=== PATIENT | male | born 1975 | race African-American/Black ===

== ENCOUNTER 2017-05-01 23:14 | Emergency (ER) | payer OTHER ==
[~2017-05-01] VITALS: Ht 160 cm; Wt 83.9 kg
[~2017-05-01 23:14] MED LIST: IBUPROFEN600 MG ORAL
[2017-05-01] MEDS ORDERED: LORazepam Inj 2mg/ml 1ml IV ONE (23:45)
[2017-05-01] MEDS ORDERED: Aspirin Baby 81mg ORAL ONE (23:45)
--- NOTE | 2017-05-01 23:49 | Emergency Room Report ---
History of Present Illness General Chief Complaint: Chest Pain Source: Patient Present Illness HPI Is a 42-year-old male with no past medical history. He said his been under a lot of stress lately. Last 2 months he been feeling anxious and having palpitation. Also with some chest pressure. Symptom worsen the last 2 days. No nausea vomiting. No fever or chills. Denies any radiation. No diaphoresis. He was to be checked out is make sure everything is okay. Allergies: Coded Allergies: No Known Allergies (Unverified , 07/07/16) Patient History Past Medical History: none, see triage record, old chart reviewed Past Surgical History: none Pertinent Family History: none Social History: Denies: smoking Immunizations: other Reviewed Nursing Documentation: PMH: Agreed, PSxH: Agreed Nursing Documentation-PMH Past Medical History: No Stated History Review of Systems Eye: Denies: eye pain, blurred vision ENT: Denies: ear pain, nose congestion, throat swelling Respiratory: Denies: cough, shortness of breath Cardiovascular: Reports: chest pain, palpitations Gastrointestinal: Denies: abdominal pain, diarrhea, nausea, vomiting Musculoskeletal: Denies: back pain, joint pain Skin: Denies: rash Neurological: Denies: headache, numbness Endocrine: Denies: increased thirst, increased urine Hematologic/Lymphatic: Denies: easy bruising All Other Systems: negative except mentioned in HPI Physical Exam Vital Signs Date Time Temp Pulse Resp B/P (MAP) Pulse Ox O2 Delivery O2 Flow Rate FiO2 05/01/17 23:15 97.9 65 16 139/96 100 Room Air vitals normal Sp02 EP Interpretation: reviewed, normal General Appearance: well appearing, no apparent distress, alert Head: normocephalic, atraumatic Eyes: bilateral eye PERRL, bilateral eye EOMI ENT: hearing grossly normal, normal pharynx Neck: full range of motion, supple, no meningismus Respiratory: chest non-tender, lungs clear, normal breath sounds Cardiovascular #1: regular rate, rhythm, no murmur Gastrointestinal: normal bowel sounds, non tender, no mass, no organomegaly, no bruit, non-distended Musculoskeletal: back normal, gait/station normal, normal range of motion Psychiatric: mood/affect normal Skin: warm/dry Medical Decision Making Diagnostic Impression: Primary Impression: Chest pain Qualified Codes: R07.9 - Chest pain, unspecified ER Course Patient presents with atypical chest pain. No evidence of ACS, PE, dissection to name a few. May be stress/anxiety related. We'll discharge home. He will need further workup with cardiology as an outpatient. EKG Diagnostic Results Rate: normal Rhythm: NSR ST Segments: no acute changes ASA given to the pt in ED: Yes Rhythm Strip Diag. Results Rhythm Strip Time: 23:49 EP Interpretation: yes Rate: 80 Rhythm: NSR, no PVC's, no ectopy Chest X-Ray Diagnostic Results Chest X-Ray Diagnostic Results : Chest X-Ray Ordered: Yes # of Views/Limited/Complete: 1 View Indication: Chest Pain EP Interpretation: Yes Interpretation: no consolidation, no effusion, no pneumothorax, no acute cardiopulmonary disease Impression: No acute disease Electronically Signed by: Electronically signed by Ruperto Guaman MD Last Vital Signs Date Time Temp Pulse Resp B/P (MAP) Pulse Ox O2 Delivery O2 Flow Rate FiO2 05/01/17 23:22 65 16 Room Air 05/01/17 23:15 97.9 139/96 100 Status: improved Disposition: HOME, SELF-CARE Condition: Stable Scripts Lorazepam* (ATIVAN*) 0.5 Mg Tablet 0.5 MG ORAL THREE TIMES A DAY, #21 TAB Prov: RUPERTO GUAMAN M.D. 05/02/17 Referrals: NON PHYSICIAN (PCP) Patient Instructions: Nonspecific Chest Pain Additional Instructions: Followup with your Dr. in 2-3 days. You may benefit from a referral to see a director park. Return if symptom worsen. RUPERTO GUAMAN M.D. May 01, 2017 23:49
[2017-05-01 23:56] LABS: EOSINOPHILS % (AUTO) 5.8 % (0.0-3.0); LYMPHOCYTES % (AUTO) 35.4 % (20.0-45.0); MEAN CORPUSCULAR HEMOGLOBIN 30.9 PG (27.0-31.0); MEAN CORPUSCULAR HGB CONC 34.7 G/DL (32.0-36.0); MEAN CORPUSCULAR VOLUME 89 FL (80-99); MEAN PLATELET VOLUME 7.1 FL (6.5-10.1); MONOCYTES % (AUTO) 6.6 % (1.0-10.0); NEUTROPHILS % (AUTO) 51.2 % (45.0-75.0); PLATELET COUNT 266 K/UL (150-450); RED BLOOD COUNT 4.77 M/UL (4.70-6.10); WHITE BLOOD COUNT 6.6 K/UL (4.8-10.8)
[2017-05-02 00:06] LABS: APPEARANCE,URINE CLEAR; KETONES,URINE NEGATIVE (NEGATIVE); LEUKOCYTE ESTERASE ,URINE 1+ (NEGATIVE); NITRITE,URINE NEGATIVE (NEGATIVE); PH,URINE 7 (4.5-8.0); PROTEIN,URINE NEGATIVE (NEGATIVE); UROBILINOGEN,URINE 1 MG/DL (0.0-1.0)
[2017-05-02 00:16] LABS: ALANINE AMINOTRANSFERASE 24 U/L (12-78); ALBUMIN/GLOBULIN RATIO 0.8 (1.0-2.7); ANION GAP 7 (5-15); ASPARTATE AMINO TRANSFERASE 14 U/L (15-37); CALCIUM 10.2 MG/DL (8.5-10.1); CARBON DIOXIDE 27 MMOL/L (21-32); CHLORIDE 106 MMOL/L (98-107); CKMB 0.6 NG/ML (0.0-3.6); CREATININE 1.2 MG/DL (0.55-1.30); GLOMERULAR FILTRATION RATE > 60 mL/min (>60); POTASSIUM 3.7 MMOL/L (3.5-5.1); SODIUM 140 MMOL/L (136-145); TOTAL PROTEIN 8.1 G/DL (6.4-8.2)
[2017-05-02 00:24] VITALS: BP 132/93
[2017-05-02] MEDS ORDERED: ATIVAN0.5 MG ORAL (00:29)
[2017-05-02 00:32] LABS: BACTERIA,URINE FEW /HPF; RBC,URINE 0-2 /HPF (0 - 0); SQUAMOUS EPITHELIAL CELL,UR FEW /LPF (NONE/OCC); WBC,URINE 0-2 /HPF (0 - 0)
[2017-05-02 00:35] VITALS: BP 132/93
--- NOTE | 2017-05-02 08:54 | Diagnostic Imaging Report ---
Indication: Chest pain Comparison: 02/13/2010 Findings: Single view of the chest shows a normal cardiomediastinal silhouette. Pulmonary vasculature is normal. Lung are clear. Soft tissues and osseous structures are within normal limits. Impression: Normal chest
--- NOTE | 2017-05-11 08:26 | Cardiology Report ---
APPROVED REPORT EKG Measurement Heart [id number] Normal sinus rhythm Normal ECG
== END 2017-05-02 00:36 | disposition home or self-care (01) ==
LOC: EMR 23:46
DX: R07.89 Other chest pain (principal); R00.2 Palpitations
CPT/HCPCS: 36415; 71010; 80053; 80300; 81003; 82550; 82553; 84484; 85025; 93005; 99283

== ENCOUNTER 2017-08-19 21:51 | Emergency (ER) | payer OTHER ==
[~2017-08-19] VITALS: Ht 162.6 cm; Wt 74.8 kg
[~2017-08-19 21:51] MED LIST changes: +ATIVAN0.5 MG ORAL
[2017-08-19] MEDS ORDERED: NKM (22:01)
[2017-08-19 22:05] VITALS: BP 145/90
[2017-08-19] MEDS ORDERED: guaiFENesin 100mg/5ml Liq ud ORAL ONE (22:45)
[2017-08-19] MEDS ORDERED: NAPROXEN250 M1 PO (22:46)
[2017-08-19] MEDS ORDERED: ADULT WAL-100 MG/5 M ORAL (22:46)
[2017-08-19] MEDS ORDERED: guaiFENesin 100mg/5ml Liq ud ONE (22:52)
[2017-08-19 23:02] VITALS: BP 145/90
--- NOTE | 2017-08-20 04:34 | Emergency Room Report ---
History of Present Illness General Chief Complaint: Upper Respiratory Illness Source: Patient Present Illness HPI Patient is a 42-year-old male presented after increased cough. Patient gradual onset of symptoms. Patient been having cough for greater than a week. He denied any productive cough. He had intermittent paroxysms. He denied any fever. He had been urinating. He denied any chest discomfort. He reported having intermittent headache. Allergies: Coded Allergies: No Known Allergies (Unverified , 07/07/16) Patient History Past Medical History: see triage record Reviewed Nursing Documentation: PMH: Agreed, PSxH: Agreed Nursing Documentation-PMH Past Medical History: No Stated History Review of Systems All Other Systems: negative except mentioned in HPI Physical Exam Vital Signs Date Time Temp Pulse Resp B/P (MAP) Pulse Ox O2 Delivery O2 Flow Rate FiO2 08/19/17 21:58 98.2 72 14 145/90 97 Room Air Sp02 EP Interpretation: reviewed, normal General Appearance: normal inspection, well appearing, no apparent distress, alert, GCS 15 Head: atraumatic ENT: normal ENT inspection, hearing grossly normal, normal voice Neck: normal inspection, full range of motion, supple, no bony tend Respiratory: normal inspection, lungs clear, normal breath sounds, no respiratory distress, no retraction, no wheezing Cardiovascular #1: regular rate, rhythm, no edema Gastrointestinal: normal inspection, normal bowel sounds, non tender, soft, no guarding, no hernia Genitourinary: no CVA tenderness Musculoskeletal: normal inspection, back normal, normal range of motion Neurologic: normal inspection, alert, responsive, speech normal Psychiatric: normal inspection, judgement/insight normal, mood/affect normal Skin: normal inspection, normal color, no rash Medical Decision Making Diagnostic Impression: Primary Impression: Viral respiratory infection ER Course Presented for cough. Differential diagnosis included but was not limited to bronchitis, pneumonia, pulmonary embolism, pericarditis, asthma, foreign body. Patient has a benign exam and does not appear to require any further imaging or laboratory testing at this time. Patient presented for what appears to be a viral respiratory infection. He does not appear to require antiviral medications this time due to prolonged course. The patient is advised to follow up with primary care doctor in 1-2 days. Patient is advised to return if any worsening condition or if any changes in status that are concerning. This report is dictated with [employer] shot examiner software which may occasionally lead to discrepancies related to use of this software. Last Vital Signs Date Time Temp Pulse Resp B/P (MAP) Pulse Ox O2 Delivery O2 Flow Rate FiO2 08/19/17 22:05 72 14 Room Air 08/19/17 22:05 98.2 145/90 97 Status: unchanged Disposition: HOME, SELF-CARE Condition: Stable Scripts Naproxen (Naproxen) 250 Mg Tablet 250 MG PO EVERY 12 HOURS, #14 TAB Prov: Arturo Carrero 08/19/17 Guaifenesin* (ADULT WAL-TUSSIN*) 100 Mg/5 Ml Liquid 10 ML ORAL Q4H, #120 ML Prov: Arturo Carrero 08/19/17 Referrals: [facility],REFERR (PCP) Patient Instructions: Upper Respiratory Infection, Adult Arturo Carrero Aug 20, 2017 04:34
== END 2017-08-19 23:02 | disposition home or self-care (01) ==
LOC: EMR 22:48
DX: J06.9 Acute upper respiratory infection, unspecified (principal); B34.9 Viral infection, unspecified
CPT/HCPCS: 99283

== ENCOUNTER 2018-04-26 11:08 | Emergency (ER) | payer SELFPAY ==
[~2018-04-26] VITALS: Ht 160 cm; Wt 81.6 kg
[~2018-04-26 11:08] MED LIST changes: +ADULT WAL-100 MG/5 M ORAL; +NAPROXEN250 M1 PO; +NKM
[2018-04-26 11:14] VITALS: BP 118/81
--- NOTE | 2018-04-26 11:59 | Emergency Room Report ---
History of Present Illness General Chief Complaint: General Complaint Source: Patient Present Illness HPI 43-year-old male with no medical problems presents with left-sided nonradiating chest discomfort sensation since this morning with a sensation of weakness and generalized dizziness whenever he tried to stand up. He reports it feels like he was going to pass out but he never did. Denies SOB, and reports it feels somewhat like heartburn and he's had this symptom before. Allergies: Coded Allergies: No Known Allergies (Unverified , 04/26/18) Patient History Past Medical History: see triage record Reviewed Nursing Documentation: PMH: Agreed; PSxH: Agreed Nursing Documentation-PMH Past Medical History: No Stated History Review of Systems All Other Systems: negative except mentioned in HPI Physical Exam Vital Signs Date Time Temp Pulse Resp B/P (MAP) Pulse Ox O2 Delivery O2 Flow Rate FiO2 04/26/18 11:14 97.8 77 19 118/81 99 Room Air 97.8 Sp02 EP Interpretation: reviewed, normal General Appearance: no apparent distress, alert, non-toxic Head: normocephalic Eyes: bilateral eye normal inspection, bilateral eye PERRL, bilateral eye EOMI ENT: normal ENT inspection, hearing grossly normal, normal pharynx, no angioedema, normal voice, moist mucus membranes Neck: normal inspection, full range of motion, supple, supple/symm/no masses Respiratory: chest non-tender, lungs clear, normal breath sounds, chest symmetrical, palpation of chest normal Cardiovascular #1: normal peripheral pulses, regular rate, rhythm Cardiovascular #2: 2+ radial (R), 2+ radial (L) Gastrointestinal: normal inspection, non tender, soft, no mass, no guarding, no rebound Rectal: deferred Genitourinary: normal inspection, no CVA tenderness Musculoskeletal: back normal, gait/station normal, normal range of motion, non- tender, no calf tenderness, Isaak's Sign negative Neurologic: alert, responsive, land degradation analyst III-XII nml as tested, motor strength/tone normal, sensory intact, speech normal Psychiatric: judgement/insight normal, memory normal, mood/affect normal, no suicidal/homicidal ideation Skin: normal color, no rash, warm/dry, normal turgor Lymphatic: no adenopathy Medical Decision Making Diagnostic Impression: Primary Impression: Vaso vagal episode ER Course Patient with symptoms more concerning for near-syncope and chest pain, has been pain-free throughout his course here, has no risk factors for acute coronary syndrome, chest CT is negative for PE, will discharge, follow-up with PMD EKG Diagnostic Results EKG Time: 11:22 EP Interpretation: no st-t changes, no twi's Rate: normal Rhythm: NSR ST Segments: no acute changes ASA given to the pt in ED: Yes Rhythm Strip Diag. Results Rhythm Strip Time: 11:58 EP Interpretation: yes Rate: 63 Rhythm: NSR, no PVC's Chest X-Ray Diagnostic Results Chest X-Ray Diagnostic Results : Chest X-Ray Ordered: Yes # of Views/Limited/Complete: 1 View Indication: Chest Pain EP Interpretation: Yes Interpretation: no consolidation, no effusion, no pneumothorax, no acute cardiopulmonary disease Impression: No acute disease Electronically Signed by: Tripp Bryant MD CT/MRI/US Diagnostic Results CT/MRI/US Diagnostic Results : Imaging Test Ordered: cta chest Impression negative for PE or other acute dz Last Vital Signs Date Time Temp Pulse Resp B/P (MAP) Pulse Ox O2 Delivery O2 Flow Rate FiO2 04/26/18 11:14 97.8 77 19 118/81 99 Room Air 97.9 Disposition: HOME, SELF-CARE Condition: Stable TRIPP BRYANT M.D Apr 26, 2018 11:59
[2018-04-26 12:00] LABS: BASOPHILS % (AUTO) 0.7 % (0.0-2.0); EOSINOPHILS % (AUTO) 0.6 % (0.0-3.0); HEMOGLOBIN 14.1 G/DL (14.2-18.0); LYMPHOCYTES % (AUTO) 16.6 % (20.0-45.0); MEAN CORPUSCULAR VOLUME 87 FL (80-99); NEUTROPHILS % (AUTO) 77.1 % (45.0-75.0); PLATELET COUNT 241 K/UL (150-450); RED BLOOD COUNT 4.81 M/UL (4.70-6.10); RED CELL DISTRIBUTION WIDTH 11.1 % (11.6-14.8); WHITE BLOOD COUNT 6.1 K/UL (4.8-10.8)
[2018-04-26] MEDS ORDERED: Isovue-370 150ml vial INJ PRN (12:15)
[2018-04-26 12:18] LABS: ANION GAP 8 mmol/L (5-15); BLOOD UREA NITROGEN 16 mg/dL (7-18); CARBON DIOXIDE 26 MMOL/L (21-32); CHLORIDE 106 MMOL/L (98-107); POTASSIUM 3.9 MMOL/L (3.5-5.1); SODIUM 140 MMOL/L (136-145)
[2018-04-26 12:22] LABS: ALANINE AMINOTRANSFERASE 22 U/L (12-78); ALBUMIN 3.6 G/DL (3.4-5.0); ALBUMIN/GLOBULIN RATIO 0.9 (1.0-2.7); ALKALINE PHOSPHATASE 75 U/L (46-116); ASPARTATE AMINO TRANSFERASE 17 U/L (15-37); BILIRUBIN,TOTAL 0.6 MG/DL (0.2-1.0)
--- NOTE | 2018-04-26 12:41 | Diagnostic Imaging Report ---
Indication: Chest pain Comparison: 05/01/2017 A single view chest radiograph was obtained. Findings: Cardiomediastinal appearance is within normal limits for age. The lungs are clear. Pulmonary vascularity is appropriate. The diaphragmatic contour is smooth and costophrenic angles are sharp. No pleural effusions are identified. The bones are unremarkable. Impression: No acute findings
[2018-04-26 13:42] VITALS: BP 120/72
--- NOTE | 2018-04-26 13:49 | Diagnostic Imaging Report ---
Indication: Chest pain Technique: Continuous helical transaxial imaging of the chest was obtained from the thoracic inlet to the upper abdomen during rapid intravenous contrast administration. Arterial phase of enhancement obtained. Coronal 2-D reformats were also obtained and maximum intensity projection images in multiple planes. Study obtained in a Siemens sensation [address] Automatic Exposure Control was utilized. Total Dose length Product (DLP): 1169.[address] Dose Index Volume (CTDIvol): 24.4,23.1,23.1 mGy Comparison: None Findings: The pulmonary artery is well opacified and shows no filling defects. There is no adenopathy, pleural or pericardial effusions are identified. There is no aortic dissection or aneurysm identified within the chest. The lungs are clear. Visualized part of the upper abdomen is unremarkable. Impression: Negative CTA of the chest The CT scanner at [facility] is accredited by the [employer] and the scans are performed using dose optimization techniques as appropriate to a performed exam including Automatic Exposure control.
[2018-04-26] MEDS ORDERED: PEPCID AC20 M2 PO (14:24)
[2018-04-26 14:37] VITALS: BP 120/72
--- NOTE | 2018-05-01 12:25 | Cardiology Report ---
APPROVED REPORT EKG Measurement Heart [id number] AR [id number] Normal sinus rhythm Normal ECG
== END 2018-04-26 14:50 | disposition home or self-care (01) ==
LOC: EMR 11:56
DX: R55 Syncope and collapse (principal); R07.89 Other chest pain
CPT/HCPCS: 36415; 71045; 71275; 80053; 83690; 84484; 85025; 93005; 99284; Q9967

== ENCOUNTER → 2018-07-12 | Emergency (ER) | payer SELFPAY ==
[~2018-07-12] VITALS: Ht 160 cm; Wt 81.6 kg
[~2018-07-12] MED LIST changes: +AMOXICILLIN500 MG ORAL; +PEPCID AC20 M2 PO; +PROMETHAZINE-C118 M1 ORAL
[2018-07-12 11:12] VITALS: BP 121/78
[2018-07-12 11:41] VITALS: BP 128/86
--- NOTE | 2018-07-12 11:49 | Emergency Room Report ---
History of Present Illness General Chief Complaint: Flu Like Symptoms Source: Patient Present Illness HPI 43-year-old male presents ED for evaluation. Patient complaining of bodyaches, cough, chills 2 weeks. Cough is productive with greenish phlegm. Afebrile in triage. Pain is dull, 8 out of 10, nonradiating. States that he has tried multiple adat-kco-pxchjow medications without relief. Denies sick contacts or recent travel. Did not receive flu vaccine this year. No other aggravating relieving factors. Denies any other associated symptoms Allergies: Coded Allergies: No Known Allergies (Unverified , 04/26/18) Patient History Past Medical History: GERD Past Surgical History: none Pertinent Family History: none Social History: Denies: smoking, alcohol use, drug use Immunizations: UTD Reviewed Nursing Documentation: PMH: Agreed; PSxH: Agreed Nursing Documentation-PMH Past Medical History: No History, Except For Hx Gastrointestinal Problems: Yes - GERD Review of Systems All Other Systems: negative except mentioned in HPI Physical Exam Vital Signs Date Time Temp Pulse Resp B/P (MAP) Pulse Ox O2 Delivery O2 Flow Rate FiO2 07/12/18 11:04 98.2 68 16 121/78 98 Room Air Sp02 EP Interpretation: reviewed, normal General Appearance: no apparent distress, alert, GCS 15, non-toxic Head: normocephalic, atraumatic Eyes: bilateral eye normal inspection, bilateral eye PERRL ENT: hearing grossly normal, normal pharynx, no angioedema, normal voice Neck: full range of motion, supple/symm/no masses Respiratory: chest non-tender, lungs clear, normal breath sounds, speaking full sentences Cardiovascular #1: regular rate, rhythm, no edema Cardiovascular #2: 2+ carotid (R), 2+ carotid (L), 2+ radial (R), 2+ radial (L) , 2+ dorsalis pedis (R), 2+ dorsalis pedis (L) Gastrointestinal: normal bowel sounds, non tender, soft, non-distended, no guarding, no rebound Rectal: deferred Genitourinary: normal inspection, no CVA tenderness Musculoskeletal: back normal, gait/station normal, normal range of motion, non- tender Neurologic: alert, oriented x3, responsive, motor strength/tone normal, sensory intact, speech normal Psychiatric: judgement/insight normal, memory normal, mood/affect normal, no suicidal/homicidal ideation Reflexes: 3+ bicep (R), 3+ bicep (L), 3+ tricep (R), 3+ tricep (L), 3+ knee (R) , 3+ knee (L) Skin: normal color, no rash, warm/dry, well hydrated Lymphatic: no adenopathy Medical Decision Making Diagnostic Impression: Primary Impression: Atypical pneumonia Additional Impression: Influenza-like symptoms ER Course Hospital Course 43-year-old male presents ED complaining of bodyaches and cough x2 weeks Differential diagnoses include: URI, pharyngitis, otitis media, asthma Clinical course Patient placed on stretcher. After initial history, physical exam reveals a female in no acute distress. Bilateral TM unremarkable. No pharyngeal erythema. No tonsillar exudates. No lymphadenopathy. lungs clear. abdomen soft. Presentation consistent with atypical pneumonia. Given presentation, i will prescribe antibiotics Patient does not have a PMD. We'll provide referrals. Safe for discharge and close outpatient follow-up Diagnosis - atypical pneumonia Stable and discharged home with Rx amoxicillin, promethazine/codeine, motrin. Instructed to followup with PMD. Return to ED if symptoms recur or worsen Last Vital Signs Date Time Temp Pulse Resp B/P (MAP) Pulse Ox O2 Delivery O2 Flow Rate FiO2 07/12/18 11:41 98.8 88 18 128/86 98 Room Air Status: improved Disposition: HOME, SELF-CARE Condition: Stable Scripts Ibuprofen* (MOTRIN*) 600 Mg Tablet 600 MG ORAL Q8H PRN for For Pain, #30 TAB 0 Refills Prov: Phu Young MD 07/12/18 Codeine/Promethazine Hcl* (PROMETHAZINE-CODEINE SYRUP*) 118 Ml Syrup 5 ML ORAL Q6H PRN for For Cough, #118 ML 0 Refills Prov: Phu Young MD 07/12/18 Amoxicillin* (AMOXIL*) 500 Mg Capsule 500 MG ORAL THREE TIMES A DAY, #21 CAP Prov: Phu Young MD 07/12/18 Referrals: [facility] Patient Instructions: Community-Acquired Pneumonia, Adult, [id number] Phu Young MD Jul 12, 2018 11:49
== END | disposition home or self-care (01) ==
LOC: EMR 11:24
DX: J18.9 Pneumonia, unspecified organism (principal); K21.9 Gastro-esophageal reflux disease without esophagitis
CPT/HCPCS: 99283

== ENCOUNTER 2018-08-06 23:48 | Emergency (ER) | payer OTHER ==
[~2018-08-06] VITALS: Ht 160 cm; Wt 83.9 kg
--- NOTE | 2018-08-07 00:03 | NUR ---
ED Nurse Note: Patient walk in c/o lower back pain that has been getting worse for the past month. patient reports frequent urination for 1x week. Patient states he injured his back at work in 2016. AO4. NAD. VSS. Denies SOB.
[2018-08-07 00:04] VITALS: BP 128/88
--- NOTE | 2018-08-07 00:15 | NUR ---
ED Nurse Note: Urine collected; sent down to lab.
[2018-08-07] MEDS ORDERED: Ketorolac 30mg Inj IM ONE (00:30)
[2018-08-07] MEDS ORDERED: Methocarbamol 750mg tab ORAL ONE (00:30)
[2018-08-07 01:23] LABS: APPEARANCE,URINE CLEAR; BILIRUBIN, URINE NEGATIVE (NEGATIVE); COLOR,URINE YELLOW; GLUCOSE, URINE (UA) NEGATIVE (NEGATIVE); KETONES,URINE NEGATIVE (NEGATIVE); LEUKOCYTE ESTERASE ,URINE NEGATIVE (NEGATIVE); NITRITE,URINE NEGATIVE (NEGATIVE); PH,URINE 6 (4.5-8.0); PROTEIN,URINE 1+ (NEGATIVE); UROBILINOGEN,URINE 1 MG/DL (0.0-1.0)
[2018-08-07] MEDS ORDERED: LIDODERM700 M1 TOPIC (02:02)
[2018-08-07] MEDS ORDERED: ROBAXIN-750750 MG PO (02:02)
[2018-08-07] MEDS ORDERED: IBUPROFEN600 MG ORAL (02:02)
[2018-08-07 02:05] VITALS: BP 128/88
--- NOTE | 2018-08-07 02:05 | NUR ---
ED Nurse Note: Patient cleared for discharge per ERMD. AO4. NAD. VSS. Patient given prescriptions and discharge instructions; verbalized understanding. ID band removed. Patient ambulated out with all personal belongings with steady gait.
--- NOTE | 2018-08-07 04:19 | Emergency Room Report ---
History of Present Illness General Chief Complaint: Lower Back Pain or Injury Source: Patient Present Illness HPI 43-year-old male presents ED for evaluation. Patient complaining of back pain. States pain has been on and off his 2016 when he had a injury at work. States pain has been getting progressively worse for the last month. Throbbing , 8 out of 10, nonradiating. States he's been experiencing increased urinary frequency area denies incontinence. Denies dysuria. Denies nausea or vomiting. Denies any leg or motor weakness. No other aggravating relieving factors. Denies any other associated symptoms Allergies: Coded Allergies: No Known Allergies (Unverified , 04/26/18) Patient History Past Medical History: GERD Past Surgical History: none Pertinent Family History: none Social History: Denies: smoking, alcohol use, drug use Immunizations: UTD Reviewed Nursing Documentation: PMH: Agreed; PSxH: Agreed Nursing Documentation-PMH Past Medical History: No History, Except For Hx Gastrointestinal Problems: Yes - GERD, Review of Systems All Other Systems: negative except mentioned in HPI Physical Exam Vital Signs Date Time Temp Pulse Resp B/P (MAP) Pulse Ox O2 Delivery O2 Flow Rate FiO2 08/06/18 23:53 97.9 70 16 128/88 98 08/07/18 00:04 Room Air Sp02 EP Interpretation: reviewed, normal General Appearance: no apparent distress, alert, GCS 15, non-toxic Head: normocephalic, atraumatic Eyes: bilateral eye normal inspection, bilateral eye PERRL ENT: hearing grossly normal, normal pharynx, no angioedema, normal voice Neck: full range of motion, supple/symm/no masses Respiratory: chest non-tender, lungs clear, normal breath sounds, speaking full sentences Cardiovascular #1: regular rate, rhythm, no edema Cardiovascular #2: 2+ carotid (R), 2+ carotid (L), 2+ radial (R), 2+ radial (L) , 2+ dorsalis pedis (R), 2+ dorsalis pedis (L) Gastrointestinal: normal bowel sounds, non tender, soft, non-distended, no guarding, no rebound Rectal: deferred Genitourinary: normal inspection, no CVA tenderness, no vertebral tenderness Musculoskeletal: back normal, gait/station normal, normal range of motion, tender - paraspinal lumbar tenderness Neurologic: alert, oriented x3, responsive, motor strength/tone normal, sensory intact, speech normal Psychiatric: judgement/insight normal, memory normal, mood/affect normal, no suicidal/homicidal ideation Reflexes: 3+ bicep (R), 3+ bicep (L), 3+ tricep (R), 3+ tricep (L), 3+ knee (R) , 3+ knee (L) Skin: normal color, no rash, warm/dry, well hydrated Lymphatic: no adenopathy Medical Decision Making Diagnostic Impression: Primary Impression: Low back pain Qualified Codes: M54.5 - Low back pain; G89.29 - Other chronic pain ER Course Hospital Course 43-year-old male presents ED complaining of lower back pain. increased urinary frequency. Differential diagnoses include: pyelonephritis, kidney stone, muscle strain, Lspine fracture Clinical course Patient placed on stretcher. After initial history, physical exam reveals a middle-aged male in no acute distress. There is no body tenderness. There is paraspinal lumbar tenderness bilaterally. No flank pain. 5 out of 5 motor strength in lower extremities. I ordered UA, Toradol, Robaxin, lidoderm patch. UA negative. Upon reassessment patient states pain has improved. Discussed findings with the patient. Pain is chronic. No indication for imaging at this time. Patient would benefit from outpatient workup, possible physical therapy. patient states she has an appointment with his PMD this week, and states he will start the process Diagnosis - back pain Stable and discharged to home with prescription for motrin, robaxin, lidoderm. Followup with PMD. Return to ED if symptoms recur or worsen Labs Test 08/07/18 00:05 Urine Color Yellow Urine Appearance Clear Urine pH 6 (4.5-8.0) Urine Specific Organ 1.025 (1.005-1.035) Urine Protein 1+ (NEGATIVE) Urine Glucose (UA) Negative (NEGATIVE) Urine Ketones Negative (NEGATIVE) Urine Blood Negative (NEGATIVE) Urine Nitrite Negative (NEGATIVE) Urine Bilirubin Negative (NEGATIVE) Urine Urobilinogen 1 MG/DL (0.0-1.0) Urine Leukocyte Esterase Negative (NEGATIVE) Urine RBC 0-2 /HPF (0 - 0) Urine WBC 0-2 /HPF (0 - 0) Urine Squamous Epithelial Cells Occasional /LPF Urine Bacteria Few /HPF (NONE) Urine Mucus Few /LPF (NONE/OCC) Last Vital Signs Date Time Temp Pulse Resp B/P (MAP) Pulse Ox O2 Delivery O2 Flow Rate FiO2 08/07/18 02:05 97.9 70 16 128/88 98 Room Air Status: improved Disposition: HOME, SELF-CARE Condition: Stable Scripts Lidocaine (Lidoderm) 1 Each Adh..patch 1 PATCH TOPIC DAILY, #7 PATCH 0 Refills Patch(es) may remain in place for up to 12 hours in any 24-hour period. Prov: Phu Young MD 08/07/18 Methocarbamol* (ROBAXIN-750*) 750 Mg Tablet 750 MG PO TID, #21 TAB 0 Refills Prov: Phu Young MD 08/07/18 Ibuprofen* (MOTRIN*) 600 Mg Tablet 600 MG ORAL Q8H PRN for For Pain, #30 TAB 0 Refills Prov: Phu Young MD 08/07/18 Referrals: NOT CHOSEN [facility]/,REFERRING (PCP) Patient Instructions: Low Back Sprain With [facility] Phu Young MD Aug 07, 2018 04:19
== END 2018-08-07 02:05 | disposition home or self-care (01) ==
LOC: EMR 23:59
DX: M54.5 Low back pain (principal); G89.29 Other chronic pain; K21.9 Gastro-esophageal reflux disease without esophagitis
CPT/HCPCS: 81003; 96372; 99283; J1885

== ENCOUNTER 2018-08-28 15:18 | Emergency (ER) | payer OTHER ==
[~2018-08-28] VITALS: Ht 162.6 cm; Wt 83.9 kg
[~2018-08-28 15:18] MED LIST changes: +LIDODERM700 M1 TOPIC; +ROBAXIN-750750 MG PO
[2018-08-28 15:41] VITALS: BP 126/84
--- NOTE | 2018-08-28 15:44 | NUR ---
ED Nurse Note: pt walked in to ER c/o coughing for a week. pt did not cough during assessment but pt sound congestion and had runny nose. per pt, he gets greenish sputum and gets chest pain upon coughing 5/10. pt aao x4 and calm and skin intact.
--- NOTE | 2018-08-28 15:51 | Emergency Room Report ---
History of Present Illness General Chief Complaint: Flu Like Symptoms Source: Patient Present Illness HPI 43-year-old male with no significant past medical history here complaining of one-week of cough with green phlegm. Patient denies any new onset of fever, shortness of breath, wheezing, sore throat. Denies abdominal pain, nausea vomiting, chest pain only secondary to coughing, palpitations. Patient reports that both him and his son has similar symptoms. Recent travel, antibiotic use, denies smoking or any drug usehas been taking DayQuil and NyQuil with minimal relief Allergies: Coded Allergies: No Known Allergies (Unverified , 04/26/18) Patient History Past Medical History: see triage record Past Surgical History: none Pertinent Family History: none Immunizations: UTD Reviewed Nursing Documentation: PMH: Agreed; PSxH: Agreed Nursing Documentation-PMH Past Medical History: No Stated History Hx Gastrointestinal Problems: Yes - GERD, Review of Systems All Other Systems: negative except mentioned in HPI Physical Exam Vital Signs Date Time Temp Pulse Resp B/P (MAP) Pulse Ox O2 Delivery O2 Flow Rate FiO2 08/28/18 15:27 98.6 93 19 126/84 99 Room Air Sp02 EP Interpretation: reviewed, normal General Appearance: normal inspection, well appearing Head: normocephalic Eyes: bilateral eye normal inspection, bilateral eye PERRL ENT: normal ENT inspection, normal pharynx, TMs + canals normal, uvula midline Neck: normal inspection, full range of motion, supple Respiratory: normal inspection, chest non-tender, lungs clear, no rhonchi, no respiratory distress, no wheezing Cardiovascular #1: normal inspection, regular rate, rhythm, no edema, no murmur Gastrointestinal: normal inspection, non tender, soft Rectal: deferred Genitourinary: no CVA tenderness Musculoskeletal: normal inspection, back normal Neurologic: normal inspection, alert, oriented x3 Psychiatric: normal inspection, judgement/insight normal, memory normal Skin: normal inspection, normal color, no rash, warm/dry Lymphatic: normal inspection, no adenopathy Medical Decision Making PA Attestation all diagnoses and treatment plan reviewed and discussed with supervising physician Dr. langston Diagnostic Impression: Primary Impression: Bronchitis ER Course 43-year-old male with no significant past medical history here complaining of one-week of cough with green phlegm. Patient denies any new onset of fever, shortness of breath, wheezing, sore throat. Denies abdominal pain, nausea vomiting, chest pain only secondary to coughing, palpitations. Patient reports that both him and his son has similar symptoms. Recent travel, antibiotic use, denies smoking or any drug usehas been taking DayQuil and NyQuil with minimal relief Ddx considered but are not limited to bronchitis, pneumonia, upper respiratory infection Vital signs: are WNL, pt. is afebrile H&PE are most consistent with bronchitis ORDERS: phenergan, azithromycin, Medrol Dosepak, albuterol ED INTERVENTIONS: None required at this time. DISCHARGE: At this time pt. is stable for d/c to home. Will provide printed patient care instructions, and any necessary prescriptions. Care plan and follow up instructions have been discussed with the patient prior to discharge. Last Vital Signs Date Time Temp Pulse Resp B/P (MAP) Pulse Ox O2 Delivery O2 Flow Rate FiO2 08/28/18 15:41 98.6 78 19 126/84 99 Room Air Disposition: HOME, SELF-CARE Condition: Stable Scripts Methylprednisolone (Methylprednisolone*) 4MG Dspk 4 MG ORAL DIRECTED for 6 Days, #21 EA 0 Refills Day 1: Two tablets before breakfast, one after lunch, one after dinner, and two at bedtime. If started late in the day, take all six tablets at once or divide into two or three doses, unless otherwise directed by prescriber. Day 2: One tablet before breakfast, one after lunch, one after dinner, and two at bedtime Day 3: One tablet before breakfast, one after lunch, one after dinner, and one at bedtime Day 4: One tablet before breakfast, one after lunch, and one at bedtime Day 5: One tablet before breakfast and one at bedtime Day 6: One tablet before breakfast Prov: MacariomogBelle montelongo 08/28/18 Albuterol Sulfate (VENTOLIN HFA) 18 Gm Hfa.aer.ad 2 PUFFS INH EVERY 6 HOURS, #18 GM 0 Refills Prov: MacariomogBelle montelongo PA 08/28/18 Promethazine Hcl (PROMETHAZINE HCL*) 6.25 Mg/5 Ml Syrup 5 ML ORAL Q6H, #120 ML 0 Refills Prov: Belle Chery 08/28/18 Azithromycin* (ZITHROMAX*) 250 Mg Tablet 250 MG ORAL DAILY, #6 TAB 0 Refills Take two tables once daily for 1 day, then one tablet once daily for 4 days. Prov: Belle Chery 08/28/18 Referrals: NOT CHOSEN IPA/,REFERRING (PCP) Patient Instructions: Acute Bronchitis, [id number] Additional Instructions: take medication as directed, follow with a primary care provider, if new onset of fever or shortness of breath present to the emergency room Belle Chery Aug 28, 2018 15:51
[2018-08-28] MEDS ORDERED: ZITHROMAX250 MG ORAL (15:54)
[2018-08-28] MEDS ORDERED: MEDROL DOSEPAK4 MG ORAL (15:54)
[2018-08-28] MEDS ORDERED: VENTOLIN HFA18 GM INH (15:54)
[2018-08-28] MEDS ORDERED: PROMETHAZI6.25 MG/1 ORAL (15:54)
[2018-08-28 16:08] VITALS: BP 126/84
--- NOTE | 2018-08-28 16:09 | NUR ---
ED Nurse Note: Pt cleared DC by ERPA. Pt is A/Ox4, present with his son with same symptoms, and getting discharge togeter, VSS, DC instruction and prescriptions given, pt verbalized understanding. ID wristband removed. All belongings given to pt. Pt ambulated out of ER with steady gait.
== END 2018-08-28 16:10 | disposition home or self-care (01) ==
LOC: EMR 15:49
DX: J40 Bronchitis, not specified as acute or chronic (principal); K21.9 Gastro-esophageal reflux disease without esophagitis
CPT/HCPCS: 99283

== ENCOUNTER 2019-03-06 14:34 | Emergency (ER) | payer SELFPAY ==
[~2019-03-06] VITALS: Ht 162.6 cm; Wt 81.6 kg
[~2019-03-06 14:34] MED LIST changes: +MEDROL DOSEPAK4 MG ORAL; +PROMETHAZI6.25 MG/1 ORAL; +VENTOLIN HFA18 GM INH; +ZITHROMAX250 MG ORAL
[2019-03-06 14:46] VITALS: BP 128/83
--- NOTE | 2019-03-06 14:46 | NUR ---
ED Nurse Note: Patient ambulated in to ER from home due to chest discomfort radiates to Lt side of upper body. pt stated "I think it is related to acid. I have had same symptom before and it was acid reflux. Patient alert and oriented x4 and ambulatory. Skin clean and intact. Calm and cooperative. No acute distress noted at this time.
--- NOTE | 2019-03-06 15:10 | NUR ---
ED Nurse Note: x-ray at bedside.
[2019-03-06] MEDS ORDERED: Pantoprazole Inj IVP ONE (15:15)
[2019-03-06] MEDS ORDERED: Ketorolac 30mg Inj IV ONE (15:15)
[2019-03-06 15:54] LABS: APPEARANCE,URINE CLEAR; BILIRUBIN, URINE NEGATIVE (NEGATIVE); COLOR,URINE YELLOW; GLUCOSE, URINE (UA) NEGATIVE (NEGATIVE); KETONES,URINE NEGATIVE (NEGATIVE); LEUKOCYTE ESTERASE ,URINE NEGATIVE (NEGATIVE); NITRITE,URINE NEGATIVE (NEGATIVE); PH,URINE 7 (4.5-8.0); PROTEIN,URINE NEGATIVE (NEGATIVE); UROBILINOGEN,URINE 4 MG/DL (0.0-1.0)
[2019-03-06 15:56] LABS: ANION GAP 7 mmol/L (5-15); BLOOD UREA NITROGEN 17 mg/dL (7-18); CALCIUM 10.1 MG/DL (8.5-10.1); CARBON DIOXIDE 26 MMOL/L (21-32); CHLORIDE 109 MMOL/L (98-107); CREATININE 1.1 MG/DL (0.55-1.30); POTASSIUM 4.2 MMOL/L (3.5-5.1); SODIUM 142 MMOL/L (136-145)
[2019-03-06 16:00] LABS: ALANINE AMINOTRANSFERASE 19 U/L (12-78); ALBUMIN 3.7 G/DL (3.4-5.0); ALBUMIN/GLOBULIN RATIO 0.9 (1.0-2.7); ALKALINE PHOSPHATASE 87 U/L (46-116); ASPARTATE AMINO TRANSFERASE 16 U/L (15-37); BILIRUBIN,TOTAL 0.5 MG/DL (0.2-1.0)
[2019-03-06 16:04] LABS: BASOPHILS % (AUTO) 1.1 % (0.0-2.0); EOSINOPHILS % (AUTO) 3.2 % (0.0-3.0); HEMATOCRIT 41.1 % (42.0-52.0); HEMOGLOBIN 14.7 G/DL (14.2-18.0); LYMPHOCYTES % (AUTO) 24.8 % (20.0-45.0); MEAN CORPUSCULAR VOLUME 85 FL (80-99); MONOCYTES % (AUTO) 5.7 % (1.0-10.0); NEUTROPHILS % (AUTO) 65.3 % (45.0-75.0); PLATELET COUNT 253 K/UL (150-450); RED BLOOD COUNT 4.83 M/UL (4.70-6.10); RED CELL DISTRIBUTION WIDTH 10.4 % (11.6-14.8); WHITE BLOOD COUNT 7.2 K/UL (4.8-10.8)
--- NOTE | 2019-03-06 16:22 | Diagnostic Imaging Report ---
Indication: Chest pain Technique: One view of the chest Comparison: 04/26/2018 Findings: Lungs and pleural spaces are clear. Heart size is normal. Study of inspiration on the current exam Impression: No acute process
--- NOTE | 2019-03-06 17:02 | Emergency Room Report ---
History of Present Illness General Chief Complaint: Chest Pain Source: Patient Present Illness HPI 44-year-old male with history of acid reflux here complaining of intermittent epigastric and chest pain for the past 6 months. Patient reports that his symptoms usually worsen after eating and acidic or spicy meal. Denies nausea vomiting, diarrhea. Denies pain radiation. Denies palpitation, dizziness and headache. Is in no apparent distress. Denies urinary symptoms. Patient reports that he has previously been seen here for similar symptoms presumed to be cardiac however was diagnosed with GERD. Has not yet seen his primary care physician. He reports that due to his back injury that happened several months ago he has been taking muscle relaxants and ibuprofen frequently. Reports in the past few days his epigastric pain has been getting worse especially when he is supine. Allergies: Coded Allergies: No Known Allergies (Unverified , 04/26/18) Patient History Past Medical History: see triage record Past Surgical History: unable to obtain Pertinent Family History: none Immunizations: UTD Reviewed Nursing Documentation: PMH: Agreed; PSxH: Agreed Nursing Documentation-PMH Past Medical History: No History, Except For Hx Gastrointestinal Problems: Yes - GERD, Review of Systems All Other Systems: negative except mentioned in HPI Physical Exam Vital Signs Date Time Temp Pulse Resp B/P (MAP) Pulse Ox O2 Delivery O2 Flow Rate FiO2 03/06/19 14:38 98.8 75 16 128/83 (98) 96 Room Air Sp02 EP Interpretation: reviewed, normal General Appearance: no apparent distress, alert, GCS 15, non-toxic Head: normocephalic, atraumatic Eyes: bilateral eye normal inspection, bilateral eye PERRL ENT: hearing grossly normal, normal pharynx, no angioedema, normal voice Neck: full range of motion, supple/symm/no masses Respiratory: chest non-tender, lungs clear, normal breath sounds, no rhonchi, speaking full sentences Cardiovascular #1: regular rate, rhythm, no edema, no murmur Gastrointestinal: normal bowel sounds, non tender, soft, non-distended, no guarding, no rebound Genitourinary: normal inspection, no CVA tenderness Musculoskeletal: back normal, gait/station normal, normal range of motion, non- tender Neurologic: alert, oriented x3, responsive, motor strength/tone normal, sensory intact, speech normal Psychiatric: judgement/insight normal, memory normal, mood/affect normal, no suicidal/homicidal ideation Skin: no rash Lymphatic: normal inspection, no adenopathy Medical Decision Making PA Attestation All diagnoses and treatment plans were reviewed and discussed with my supervising physician Dr. Vo Diagnostic Impression: Primary Impression: GERD (gastroesophageal reflux disease) ER Course 44-year-old male with history of acid reflux here complaining of intermittent epigastric and chest pain for the past 6 months. Patient reports that his symptoms usually worsen after eating and acidic or spicy meal. Denies nausea vomiting, diarrhea. Denies pain radiation. Denies palpitation, dizziness and headache. Is in no apparent distress. Denies urinary symptoms. Patient reports that he has previously been seen here for similar symptoms presumed to be cardiac however was diagnosed with GERD. Has not yet seen his primary care physician. He reports that due to his back injury that happened several months ago he has been taking muscle relaxants and ibuprofen frequently. Reports in the past few days his epigastric pain has been getting worse especially when he is supine. Ddx considered but are not limited to: appendicitis, gastroenteritis, VT, GERD, Vital signs: are WNL, pt. is afebrile H&PE are most consistent with: GERD ORDERS: CBC, CMP, troponin, EKG, pantoprazole ED INTERVENTIONS: NS bolus, Zofran, Pepcid DISCHARGE: At this time pt. is stable for d/c to home. Will provide printed patient care instructions, and any necessary prescriptions. Care plan and follow up instructions have been discussed with the patient prior to discharge. Patient to follow-up with her primary care provider for referral to GI doctor if worsening symptoms return to the emergency room at this time no risk factors noted for presumed cardiac etiology EKG Diagnostic Results Rate: normal Rhythm: NSR ST Segments: no acute changes Chest X-Ray Diagnostic Results Chest X-Ray Diagnostic Results : Chest X-Ray Ordered: Yes # of Views/Limited/Complete: 1 View Indication: Chest Pain EP Interpretation: Yes PRAVIN Xray: Interpretation reviewed, by supervising MD, and agrees with findings. Interpretation: no consolidation, no effusion, no pneumothorax Impression: No acute disease Electronically Signed by: Belle Sorto PA-C Last Vital Signs Date Time Temp Pulse Resp B/P (MAP) Pulse Ox O2 Delivery O2 Flow Rate FiO2 03/06/19 15:48 98.8 03/06/19 14:46 75 16 128/83 96 Room Air Disposition: HOME, SELF-CARE Condition: Stable Scripts Acetaminophen* (ACETAMINOPHEN EXTRA STRENGTH*) 500 Mg Tablet 1000 MG ORAL Q8HR, #30 TAB 0 Refills Prov: Belle Chery 03/06/19 Pantoprazole* (PANTOPRAZOLE*) 40 Mg Tablet. 40 MG ORAL DAILY, #30 TAB Prov: Belle Chery 03/06/19 Referrals: NOT CHOSEN IPA/,REFERRING (PCP) Patient Instructions: Food Choices for Gastroesophageal Reflux Disease, Adult Additional Instructions: Take medication as directed follow-up with your primary care provider worsening symptoms return to the emergency room Belle Chery Mar 06, 2019 17:02
[2019-03-06] MEDS ORDERED: ACETAMINOPHEN500 M3 ORAL (17:04)
[2019-03-06] MEDS ORDERED: PANTOPRAZOLE SO40 MG ORAL (17:04)
[2019-03-06 17:20] VITALS: BP 128/83
--- NOTE | 2019-03-06 17:20 | NUR ---
ER DISCHARGE NOTE: Patient is cleared to be discharged per ERMD, pt is aox4, on room air, with stable vital signs. pt was given dc and prescription instructions, pt was able to verbalize understanding, pt id band and iv site removed without complications. pt is able to ambulate with steady gait. pt took all belongings.
--- NOTE | 2019-03-07 11:02 | Cardiology Report ---
APPROVED REPORT EKG Measurement Heart [id number] Normal sinus rhythm Nonspecific T wave abnormality Abnormal ECG
== END 2019-03-06 17:20 | disposition home or self-care (01) ==
LOC: EMR 14:51
DX: K21.9 Gastro-esophageal reflux disease without esophagitis (principal); R07.9 Chest pain, unspecified
CPT/HCPCS: 36415; 71045; 80053; 80307; 81001; 84484; 85025; 93005; 96374; 96375; 99284; C9113; J1885; J7040

== ENCOUNTER 2019-03-09 09:57 | Emergency (ER) | payer SELFPAY ==
[~2019-03-09] VITALS: Ht 162.6 cm; Wt 81.6 kg
[~2019-03-09 09:57] MED LIST changes: +ACETAMINOPHEN500 M3 ORAL; +PANTOPRAZOLE SO40 MG ORAL
--- NOTE | 2019-03-09 09:59 | NUR ---
ED Nurse Note: pt not found in waiting area.
--- NOTE | 2019-03-09 10:13 | NUR ---
ED Nurse Note: Pt came in from home due to urination frequency "every 30 mins" and lower back pain x 5 days. Pain 8/10 maggy. Was in [facility] ER 2 days ago for GERD. AOx4, VSS maggy. Will cont to monitor.
[2019-03-09 10:30] LABS: APPEARANCE,URINE CLEAR; BILIRUBIN, URINE NEGATIVE (NEGATIVE); GLUCOSE, URINE (UA) NEGATIVE (NEGATIVE); KETONES,URINE NEGATIVE (NEGATIVE); LEUKOCYTE ESTERASE ,URINE NEGATIVE (NEGATIVE); NITRITE,URINE NEGATIVE (NEGATIVE); PH,URINE 7 (4.5-8.0); PROTEIN,URINE NEGATIVE (NEGATIVE); UROBILINOGEN,URINE NORMAL MG/DL (0.0-1.0)
[2019-03-09 10:46] LABS: COLOR,URINE YELLOW
--- NOTE | 2019-03-09 11:12 | Emergency Room Report ---
History of Present Illness General Chief Complaint: Male Urogenital Problems Source: Patient, Medical Record (Cintia Aguilar DO) Present Illness HPI The patient states that for the past few days he has noted urinary frequency. He states he is also had a pressure sensation in his suprapubic region. He has a history of chronic back pain and states that he is felt that that has been more worse than usual. He has had some urinary urgency. However, he states that when he does urinate he feels like he is not going as much as he would have thought he would go. He denies dysuria or hematuria. Denies fever or chills. He denies nausea or vomiting. He denies diffuse abdominal pain. He was seen 2 days ago here at [facility] emergency department for the same symptoms in addition to acid reflux symptoms. He states that his work-up at that time was negative. He has no other complaints. (Cintia Aguilar DO) Allergies: Coded Allergies: No Known Allergies (Unverified , 04/26/18) Patient History Past Medical History: see triage record, GERD Social History: Denies: smoking, alcohol use, drug use Reviewed Nursing Documentation: PMH: Agreed; PSxH: Agreed (Cintia Aguilar DO) Nursing Documentation-PMH Past Medical History: No History, Except For Hx Gastrointestinal Problems: Yes - GERD (Cintia Aguilar DO) Review of Systems All Other Systems: negative except mentioned in HPI (Cintia Aguilar DO) Physical Exam Vital Signs Date Time Temp Pulse Resp B/P (MAP) Pulse Ox O2 Delivery O2 Flow Rate FiO2 03/09/19 10:06 98.2 73 18 120/85 (97) 97 Room Air Sp02 EP Interpretation: reviewed, normal General Appearance: no apparent distress, alert, GCS 15, non-toxic Head: normocephalic, atraumatic Eyes: bilateral eye normal inspection, bilateral eye PERRL ENT: hearing grossly normal, normal pharynx, no angioedema, normal voice Neck: full range of motion, supple/symm/no masses Respiratory: chest non-tender, lungs clear, normal breath sounds, no respiratory distress, no retraction, no accessory muscle use, speaking full sentences Cardiovascular #1: regular rate, rhythm, no edema Gastrointestinal: normal bowel sounds, soft, non-distended, no guarding, no rebound, other - TTP in suprapubic region Rectal: deferred Musculoskeletal: back normal, gait/station normal, normal range of motion, non- tender Neurologic: alert, oriented x3, responsive, motor strength/tone normal, sensory intact, speech normal Psychiatric: judgement/insight normal, memory normal, mood/affect normal, no suicidal/homicidal ideation (Cintia Aguilar DO) Medical Decision Making Diagnostic Impression: Primary Impression: Urinary frequency Additional Impression: Enlarged prostate ER Course This patient had presented with urinary frequency. Urinalysis was negative for UTI or prostatitis. He also had a fullness and pressure sensation in his suprapubic region. I considered urinary retention, however, a post void residual was 0. I did obtain a CT of the abdomen and pelvis as a precaution and this was unremarkable. At that time he did have a slightly full bladder. However, he was able to urinate fully. The patient was placed on Flomax and educated to follow-up closely with the urologist. At this time, I did not identify an emergency medical condition.The patient is given close return precautions and follow-up instructions. Laboratory Tests Test 03/09/19 10:16 Urine Color Yellow Urine Appearance Clear Urine pH 7 (4.5-8.0) Urine Specific [place] 1.010 (1.005-1.035) Urine Protein Negative (NEGATIVE) Urine Glucose (UA) Negative (NEGATIVE) Urine Ketones Negative (NEGATIVE) Urine Blood Negative (NEGATIVE) Urine Nitrite Negative (NEGATIVE) Urine Bilirubin Negative (NEGATIVE) Urine Urobilinogen Normal MG/DL (0.0-1.0) Urine Leukocyte Esterase Negative (NEGATIVE) (Cintia Aguilar DO) ER Course 44-year-old male presents with BPH-like symptoms, increased frequency, patient found to have a large prostate, CT is negative, urine was negative labs negative , repeat abdominal exam unremarkable, disposition home with return precautions Laboratory Tests Test 03/09/19 10:16 03/09/19 12:08 Urine Color Yellow Urine Appearance Clear Urine pH 7 (4.5-8.0) Urine Specific [place] 1.010 (1.005-1.035) Urine Protein Negative (NEGATIVE) Urine Glucose (UA) Negative (NEGATIVE) Urine Ketones Negative (NEGATIVE) Urine Blood Negative (NEGATIVE) Urine Nitrite Negative (NEGATIVE) Urine Bilirubin Negative (NEGATIVE) Urine Urobilinogen Normal MG/DL (0.0-1.0) Urine Leukocyte Esterase Negative (NEGATIVE) White Blood Count 6.2 K/UL (4.8-10.8) Red Blood Count 4.97 M/UL (4.70-6.10) Hemoglobin 14.9 G/DL (14.2-18.0) Hematocrit 43.6 % (42.0-52.0) Mean Corpuscular Volume 88 FL (80-99) Mean Corpuscular Hemoglobin 29.9 PG (27.0-31.0) Mean Corpuscular Hemoglobin Concent 34.1 G/DL (32.0-36.0) Red Cell Distribution Width 12.2 % (11.6-14.8) Platelet Count 266 K/UL (150-450) Mean Platelet Volume 6.4 FL (6.5-10.1) L Neutrophils (%) (Auto) 65.0 % (45.0-75.0) Lymphocytes (%) (Auto) 24.5 % (20.0-45.0) Monocytes (%) (Auto) 4.9 % (1.0-10.0) Eosinophils (%) (Auto) 4.3 % (0.0-3.0) H Basophils (%) (Auto) 1.4 % (0.0-2.0) Sodium Level 139 MMOL/L (136-145) Potassium Level 4.0 MMOL/L (3.5-5.1) Chloride Level 106 MMOL/L (98-107) Carbon Dioxide Level 27 MMOL/L (21-32) Anion Gap 6 mmol/L (5-15) Blood Urea Nitrogen 9 mg/dL (7-18) Creatinine 1.1 MG/DL (0.55-1.30) Estimate Glomerular Filtration Rate > 60 mL/min (>60) Glucose Level 93 MG/DL (74-106) Calcium Level 10.4 MG/DL (8.5-10.1) H Total Bilirubin 0.7 MG/DL (0.2-1.0) Aspartate Amino Transferase (AST) 17 U/L (15-37) Alanine Aminotransferase (ALT) 21 U/L (12-78) Alkaline Phosphatase 83 U/L (46-116) Total Protein 8.3 G/DL (6.4-8.2) H Albumin 3.8 G/DL (3.4-5.0) Globulin 4.5 g/dL Albumin/Globulin Ratio 0.8 (1.0-2.7) L (Colton Liu MD) CT/MRI/US Diagnostic Results CT/MRI/US Diagnostic Results : Imaging Test Ordered: CT abd/pelvis Impression Impression: Somewhat distended bladder Otherwise negative exam. No acute abnormality or findings to explain stated clinical history of abdominal pain and urinary frequency (Cintia Aguilar DO) CT/MRI/US Diagnostic Results : Impression Procedure: CT Abdomen Pelvis w/Contrast Clinical Indication: Abdominal pain, urinary frequency, pressure sensation in suprapubic region Technique: No oral contrast utilized, per emergency room physician request IV administration nonionic contrast. Venous phase spiral acquisition obtained through the abdomen and pelvis. Multiplanar reconstructions were generated. Total dose length product 742.43 mGycm. CTDIvol(s) 15.23 mGy. Dose reduction achieved using automated exposure control Comparison: none Findings: Normal renal attenuation. No renal or ureteral calculi, hydronephrosis , hydroureter, or focal renal parenchymal abnormality. The bladder is distended, otherwise unremarkable. Prostate is unremarkable. The seminal vesicles are unremarkable. The liver, gallbladder, bile ducts, pancreas, spleen, adrenals are unremarkable. No retroperitoneal or mesenteric mass or adenopathy. No pelvic mass or adenopathy. Lack of enteric contrast limits assessment of the GI tract. The appendix is normal. No evidence of diverticulosis or diverticulitis. No small bowel distention. No free or loculated intraperitoneal gas or fluid is evident. The distal esophagus, stomach, duodenum are unremarkable. The included lung bases are clear. The bones are unremarkable. Impression: Somewhat distended bladder Otherwise negative exam. No acute abnormality or findings to explain stated clinical history of abdominal pain and urinary frequency The CT scanner at [facility] is accredited by the [employer] and the scans are performed using protocols designed to limit radiation exposure to as low as reasonably achievable to attain images of sufficient resolution adequate for diagnostic evaluation. Dictated By: Suhas Watson MD Electronically Signed By: Suhas Watson MD Signed Date/Time 03/09/19 1031 CC: Cintia Aguilar DO (Colton Liu MD) Last Vital Signs Date Time Temp Pulse Resp B/P (MAP) Pulse Ox O2 Delivery O2 Flow Rate FiO2 03/09/19 10:06 98.2 73 18 120/85 (97) 97 Room Air (Cintia Aguilar DO) Disposition: HOME, SELF-CARE Condition: Improved Scripts Tamsulosin HCl (Flomax) 0.4 Mg Cap.er.24h 0.4 MG ORAL DAILY, #30 CAP Prov: Colton Liu MD 03/09/19 Referrals: [facility]. [facility] Patient Instructions: Benign Prostatic Hyperplasia Additional Instructions: The patient was provided with discharge instructions, notified to follow-up with a primary care doctor and or specialist in the next 24-48 hours, and to return to the ED if they have worsening of their symptoms. Please note that this report is being documented using [employer] technology. This can lead to erroneous entry secondary to incorrect interpretation by the dictating instrument. FOLLOW-UP WITH UROLOGY Cintia Aguilar DO Mar 09, 2019 11:12 Colton Liu MD Mar 09, 2019 15:45
[2019-03-09] MEDS ORDERED: Isovue-300 100ml vial INJ PRN (11:15)
[2019-03-09 12:49] LABS: BASOPHILS % (AUTO) 1.4 % (0.0-2.0); EOSINOPHILS % (AUTO) 4.3 % (0.0-3.0); HEMATOCRIT 43.6 % (42.0-52.0); HEMOGLOBIN 14.9 G/DL (14.2-18.0); LYMPHOCYTES % (AUTO) 24.5 % (20.0-45.0); MEAN CORPUSCULAR VOLUME 88 FL (80-99); MONOCYTES % (AUTO) 4.9 % (1.0-10.0); PLATELET COUNT 266 K/UL (150-450); RED BLOOD COUNT 4.97 M/UL (4.70-6.10); RED CELL DISTRIBUTION WIDTH 12.2 % (11.6-14.8); WHITE BLOOD COUNT 6.2 K/UL (4.8-10.8)
[2019-03-09 12:52] VITALS: BP 115/75
[2019-03-09 12:52] LABS: ANION GAP 6 mmol/L (5-15); BLOOD UREA NITROGEN 9 mg/dL (7-18); CALCIUM 10.4 MG/DL (8.5-10.1); CARBON DIOXIDE 27 MMOL/L (21-32); CHLORIDE 106 MMOL/L (98-107); CREATININE 1.1 MG/DL (0.55-1.30); SODIUM 139 MMOL/L (136-145)
[2019-03-09 12:58] LABS: ALANINE AMINOTRANSFERASE 21 U/L (12-78); ALBUMIN 3.8 G/DL (3.4-5.0); ALBUMIN/GLOBULIN RATIO 0.8 (1.0-2.7); ALKALINE PHOSPHATASE 83 U/L (46-116); ASPARTATE AMINO TRANSFERASE 17 U/L (15-37); BILIRUBIN,TOTAL 0.7 MG/DL (0.2-1.0)
--- NOTE | 2019-03-09 13:22 | NUR ---
ED Nurse Note: Pt down to CT for imaging.
--- NOTE | 2019-03-09 13:51 | NUR ---
ED Nurse Note: Pt back from CT on gurney, no sign of acute distress.
--- NOTE | 2019-03-09 14:02 | NUR ---
ED Nurse Note: Pt's mother called and left contact: [phone]
[2019-03-09 15:15] VITALS: BP 119/69
--- NOTE | 2019-03-09 15:19 | Diagnostic Imaging Report ---
Clinical Indication: Abdominal pain, urinary frequency, pressure sensation in suprapubic region Technique: No oral contrast utilized, per emergency room physician request IV administration nonionic contrast. Venous phase spiral acquisition obtained through the abdomen and pelvis. Multiplanar reconstructions were generated. Total dose length product 742.43 mGycm. CTDIvol(s) 15.23 mGy. Dose reduction achieved using automated exposure control Comparison: none Findings: Normal renal attenuation. No renal or ureteral calculi, hydronephrosis, hydroureter, or focal renal parenchymal abnormality. The bladder is distended, otherwise unremarkable. Prostate is unremarkable. The seminal vesicles are unremarkable. The liver, gallbladder, bile ducts, pancreas, spleen, adrenals are unremarkable. No retroperitoneal or mesenteric mass or adenopathy. No pelvic mass or adenopathy. Lack of enteric contrast limits assessment of the GI tract. The appendix is normal. No evidence of diverticulosis or diverticulitis. No small bowel distention. No free or loculated intraperitoneal gas or fluid is evident. The distal esophagus, stomach, duodenum are unremarkable. The included lung bases are clear. The bones are unremarkable. Impression: Somewhat distended bladder Otherwise negative exam. No acute abnormality or findings to explain stated clinical history of abdominal pain and urinary frequency The CT scanner at [facility] is accredited by the [employer] and the scans are performed using protocols designed to limit radiation exposure to as low as reasonably achievable to attain images of sufficient resolution adequate for diagnostic evaluation.
[2019-03-09] MEDS ORDERED: FLOMAX0.4 MG ORAL (15:43)
[2019-03-09 15:50] VITALS: BP 119/69
== END 2019-03-09 15:50 | disposition home or self-care (01) ==
LOC: EMR 10:22
DX: R35.0 Frequency of micturition (principal); N40.0 Benign prostatic hyperplasia without lower urinary tract symptoms; N32.89 Other specified disorders of bladder; K21.9 Gastro-esophageal reflux disease without esophagitis
CPT/HCPCS: 36415; 74177; 80053; 81003; 85025; 99284; Q9967